=== PATIENT | female | born 1935 | race Caucasian/White ===

== ENCOUNTER 2019-03-14 18:37 | Emergency (ER) | payer MEDICARE ==
[2019-03-14] MEDS ORDERED: Sulfamethoxazole/Trimethoprim 800-160 MG Tab PO ONE ×2 (18:38→19:00)
[2019-03-14] MEDS ORDERED: Phenazopyridine 95 MG Tab PO ONE ×2 (18:38→19:00)
--- NOTE | 2019-03-14 19:05 | EDM.PDOC ---
ED HPI GENERAL MEDICAL PROBLEM - General Chief Complaint: Genitourinary Problem Stated Complaint: UTI [id number] Time Seen by Provider: 03/14/19 19:02 Source of Information: Reports: Patient History Limitations: Reports: No Limitations - History of Present Illness INITIAL COMMENTS - FREE TEXT/NARRATIVE: onset UTI Sx last night - Related Data Allergies Allergy/AdvReac Type Severity Reaction Status Date / Time atorvastatin [From Lipitor] Allergy Cough Verified 03/14/19 18:53 morphine Allergy Stomach Verified 03/14/19 18:53 Upset Home Meds: Home Meds Cholecalciferol (Vitamin D3) [Vitamin D3] 5,000 unit PO DAILY 03/14/19 [History] Cyanocobalamin (Vitamin B-12) [Vitamin B-12] 1,000 mcg PO DAILY 03/14/19 [ History] LORazepam 1 mg PO BID PRN 03/14/19 [History] Lisinopril 10 mg PO DAILY 03/14/19 [History] Metoclopramide HCl [Reglan] 10 mg PO TID PRN 03/14/19 [History] Metoprolol Succinate 25 mg PO DAILY 03/14/19 [History] Multivits-Min/Iron/FA/Lutein [Centrum Silver Women Tablet] 1 tab PO DAILY [History] Omeprazole 20 mg PO DAILY 03/14/19 [History] Pravastatin [Pravachol] 20 mg PO BEDTIME 03/14/19 [History] amLODIPine [Norvasc] 5 mg PO DAILY 03/14/19 [History] Past Medical History Cardiovascular History: Reports: Heart Failure - Past Surgical History HEENT Surgical History: Reports: Tonsillectomy GI Surgical History: Reports: Appendectomy, Cholecystectomy Other GI Surgeries/Procedures: Gastroparesis Female Surgical History: Reports: Hysterectomy Other Musculoskeletal Surgeries/Procedures:: Surgery to the tailbone Social & Family History - Tobacco Use Smoking Status *Q: Never Smoker Second Hand Smoke Exposure: No - Caffeine Use Caffeine Use: Reports: Coffee - Recreational Drug Use Recreational Drug Use: No ED ROS GENERAL - Review of Systems Review Of Systems: ROS reveals no pertinent complaints other than HPI. ED EXAM, RENAL/ - Physical Exam Exam: See Below Exam Limited By: No Limitations General Appearance: Alert, WD/WN, Mild Distress, Other ([place]) Ears: Hearing Grossly Normal Throat/Mouth: Normal Voice, No Airway Compromise Head: Atraumatic Neck: Non-Tender, Full Range of Motion Respiratory/Chest: No Respiratory Distress Cardiovascular: Regular Rate, Rhythm GI/Abdominal: Soft, Non-Tender Neurological: Alert, Oriented, Normal Cognition, Normal Gait, No Motor/Sensory Deficits Psychiatric: Normal Affect, Normal Mood Skin Exam: Warm, Dry, Normal Color Lymphatic: No Adenopathy Course - Orders/Labs/Meds Orders: Active Orders 24 hr Category Date Time Status CULTURE URINE [RM] Stat Lab 03/14/19 18:46 Received UA W/MICROSCOPIC [URIN] Stat Lab 03/14/19 18:46 Results Labs: Laboratory Tests 03/14/19 Range/Units 18:46 Urine Color Yellow (YELLOW) Urine Appearance Slightly cloudy (CLEAR) Urine pH 7.0 (5.0-9.0) Ur Specific [place] 1.015 (1.005-1.030) Urine Protein Trace H (NEGATIVE) Urine Glucose (UA) Negative (NEGATIVE) Urine Ketones 15 H (NEGATIVE) Urine Occult Blood Moderate H (NEGATIVE) Urine Nitrite Negative (NEGATIVE) Urine Bilirubin Negative (NEGATIVE) Urine Urobilinogen 1.0 (0.2-1.0) mg/dL Ur Leukocyte Esterase Large H (NEGATIVE) Meds: Medications Discontinued Medications Generic Name Dose Route Start Last Admin Trade Name Freq PRN Reason Stop Dose Admin Phenazopyridine HCl 95 mg 03/14/19 19:00 Urinary Pain Relief PO 03/14/19 19:01 ONETIME ONE Trimethoprim/Sulfamethoxazole 1 tab 03/14/19 19:00 Septra Ds PO 03/14/19 19:01 ONETIME ONE Departure - Departure Time of Disposition: 19:03 Disposition: Home, Self-Care 01 Condition: Good Clinical Impression: UTI, Urinary tract infectious disease - Discharge Information Instructions: Urinary Tract Infection, Adult, [id number] Additional Instructions: 1) drink lots of liquids 2) try cranberry juice 3) follow up at clinic rx given: bactrim DS bid x 20 pyridium 100mg tid prn x 12 - My Orders Last 24 Hours: My Active Orders 03/14/19 18:46 CULTURE URINE [RM] Stat UA W/MICROSCOPIC [URIN] Stat - Assessment/Plan Last 24 Hours: My Active Orders 03/14/19 18:46 CULTURE URINE [RM] Stat UA W/MICROSCOPIC [URIN] Stat
[2019-03-14] MEDS ORDERED: Sulfamethoxazole/Trimethoprim 800-160 MG Tab ONE (19:11)
[2019-03-14] MEDS ORDERED: Phenazopyridine 95 MG Tab ONE (19:12)
== END 2019-03-14 19:19 | disposition home or self-care (01) ==
LOC: DL.ED 18:37
DX: N39.0 Urinary tract infection, site not specified (principal); I50.9 Heart failure, unspecified; Z88.8 Allergy status to other drugs, medicaments and biological substances; Z79.899 Other long term (current) drug therapy
CPT/HCPCS: 81001; 87086; 87088; 87186; 99283; A9270